=== PATIENT | female | born 1985 | race Caucasian/White ===

== ENCOUNTER 2018-11-11 09:36 | Emergency (ER) | payer OTHER ==
[~2018-11-11] VITALS: Wt 102.0 kg
[~2018-11-11 09:36] MED LIST: AZIT250T PO; GUAI5SYR2 PO; HYDR-4011 PO; IBUP-1542 PO; NAPR-985 PO
[2018-11-11 09:39] VITALS: RESP 18
[2018-11-11] MEDS ORDERED: KETOROLAC 30 MG INJ IV STA (09:54)
[2018-11-11] MEDS ORDERED: ONDANSETRON 4 MG INJ IV STA (09:54)
[2018-11-11] MEDS ORDERED: morphine 4 MG/ML VIAL IV STA (10:25)
[2018-11-11] MEDS ORDERED: SOD CHLORIDE 0.9% 1,000 ML IV ONE (10:30)
[2018-11-11] MEDS ORDERED: IBUP-1542 PO (11:16)
[2018-11-11] MEDS ORDERED: NITR-58 PO (11:17)
[2018-11-11] MEDS ORDERED: HYDR-4011 PO (11:21)
--- NOTE | 2018-11-11 11:28 | ERD ---
ER Documentation Chief Complaint Chief Complaint R FLANK PAIN WITH N/V. SUDDEN ONSET THIS AM. NO DYSURIA PER PT HPI Patient is a 33-year-old female, no past medical history, presents the ER for concerns of right upper quadrant pain along with nausea and vomiting which started this morning. Patient states her pain was a 10 out of 10. Patient reports 3-4 episodes of nonbloody, nonbilious vomiting. Patient denies any chest pain or shortness of breath. Patient does report dysuria however she denies any hematuria. Patient denies fevers or chills. Patient denies any diarrhea. Patient states she ate red [employer] qianchengwuyouer last night for dinner. ROS All systems reviewed and are negative except as per history of present illness. Medications Home Meds Active Scripts Hydrocodone/Acetaminophen ([place] 5-325 Tablet) 1 Each Tablet, 1 TAB PO Q6H PRN for PAIN, #7 TAB Prov:YAIMA SWAIN PA-C 11/11/18 Nitrofurantoin Monohyd Macrocr* (Macrobid*) 100 Mg Capsr, 100 MG PO BID for 5 Days, CAP Prov:YAIMA SWAIN PA-C 11/11/18 Ibuprofen* (Motrin*) 600 Mg Tab, 600 MG PO Q6, #30 TAB Prov:YAIMA SWAIN PA-C 11/11/18 Hydrocodone/Acetaminophen ([place] 5-325 Tablet) 1 Each Tablet, 1 TAB PO Q6H PRN for PAIN, #20 TAB Prov:CIRA SHIPMAN PA-C 03/30/16 Naproxen* (Naprosyn*) 500 Mg Tablet, 500 MG PO BID PRN for PAIN AND/OR INFLAMMATION, #30 TAB Prov:CIRA SHIPMAN PA-C 03/30/16 Guaifenesin-Dextromethorphan* (Robitussin* DM) 100MG/10MG/5ML Syrup, 10 ML PO Q6H PRN for COUGH for 5 Days, ML Prov:CODI MOSES PA-C 01/06/16 Ibuprofen* (Motrin*) 600 Mg Tab, 600 MG PO Q6, #20 TAB Prov:CODI MOSES PA-C 01/06/16 Azithromycin* (Zithromax*) 250 Mg Tablet, 250 MG PO .KASHIF DIRECTED, #6 TAB TAKE 500 MG (2 TABS) THE FIRST DAY THEN 250 MG (1 TAB) DAYS 2-5 Prov:CODI MOSES PA-C 01/06/16 Allergies Allergies: Coded Allergies: No Known Allergy (Unverified , 03/30/16) PMhx/Soc Medical and Surgical Hx: pt denies Medical Hx, pt denies Surgical Hx Hx Alcohol Use: No Hx Substance Use: No Hx Tobacco Use: No FmHx Family History: No diabetes Physical Exam Vitals Vital Signs Date Temp Pulse Resp B/P (MAP) Pulse Ox O2 O2 Flow FiO2 Time Delivery Rate 11/11/18 98.3 77 18 130/82 99 09:39 (98) Physical Exam GENERAL: Well-developed, well-nourished female. Appears uncomfortable secondary to pain. HEAD: Normocephalic, atraumatic. EYES: Pupils are equally reactive bilaterally. EOMs grossly intact. No conjunctival erythema. ENT: Moist mucous membranes. No uvula deviation. No kissing tonsils. NECK: Supple. No meningismus. Normal range of motion of the neck. LUNG: Clear to auscultation bilaterally. No rhonchi, wheezing, rales or coarse breath sounds. HEART: Regular rate and rhythm. No murmurs, rubs or gallops. ABDOMEN: Soft, nondistended. Tender to palpation in the right upper quadrant.. Positive bowel sounds in all four quadrants. No rebound tenderness, no guarding. (-) McBurney's point tenderness. No CVA tenderness. BACK: No midline tenderness. EXTREMITIES: Equal pulses bilaterally. No peripheral clubbing, cyanosis or edema. No unilateral leg swelling. NEUROLOGIC: Alert and oriented. Moving all four extremities without any difficulty. Normal speech. Steady gait. SKIN: Normal color. Warm and dry. No rashes or lesions. Result Diagram: 11/11/18 1001 11/11/18 1001 Results 24 hrs Laboratory Tests Test 11/11/18 10:00 11/11/18 10:01 Urine Color YELLOW Urine Clarity TURBID Urine pH 5.0 Urine Specific [place] 1.028 Urine Ketones NEGATIVE mg/dL Urine Nitrite NEGATIVE mg/dL Urine Bilirubin NEGATIVE mg/dL Urine Urobilinogen 1+ mg/dL Urine Leukocyte Esterase 2+ Dilia/ul Urine Microscopic RBC 7 /HPF Urine Microscopic WBC 17 /HPF Urine Squamous Epithelial Cells FEW /HPF Urine Bacteria FEW /HPF Urine Mucus MANY /HPF Urine Hemoglobin 1+ mg/dL Urine Glucose NEGATIVE mg/dL Urine Total Protein NEGATIVE mg/dl White Blood Count 12.3 10^3/ul Red Blood Count 5.15 10^6/ul Hemoglobin 12.5 g/dl Hematocrit 40.7 % Mean Corpuscular Volume 79.0 fl Mean Corpuscular Hemoglobin 24.3 pg Mean Corpuscular Hemoglobin Concent 30.7 g/dl Red Cell Distribution Width 16.5 % Platelet Count 280 10^3/UL Mean Platelet Volume 10.7 fl Immature Granulocytes % 0.300 % Neutrophils % 67.5 % Lymphocytes % 25.5 % Monocytes % 5.1 % Eosinophils % 1.0 % Basophils % 0.6 % Nucleated Red Blood Cells % 0.0 /100WBC Immature Granulocytes # 0.040 10^3/ul Neutrophils # 8.3 10^3/ul Lymphocytes # 3.1 10^3/ul Monocytes # 0.6 10^3/ul Eosinophils # 0.1 10^3/ul Basophils # 0.1 10^3/ul Nucleated Red Blood Cells # 0.0 10^3/ul Sodium Level 144 mmol/L Potassium Level 4.2 mmol/L Chloride Level 106 mmol/L Carbon Dioxide Level 26 mmol/L Anion Gap 12 Blood Urea Nitrogen 16 mg/dl Creatinine 0.63 mg/dl Est Glomerular Filtrat Rate mL/min > 60 mL/min Glucose Level 160 mg/dl Calcium Level 9.3 mg/dl Total Bilirubin 0.4 mg/dl Direct Bilirubin 0.00 mg/dl Indirect Bilirubin 0.4 mg/dl Aspartate Amino Transf (AST/SGOT) 34 IU/L Alanine Aminotransferase (ALT/SGPT) 46 IU/L Alkaline Phosphatase 100 IU/L Total Protein 8.0 g/dl Albumin 4.3 g/dl Globulin 3.70 g/dl Albumin/Globulin Ratio 1.16 Lipase 90 U/L POC Beta HCG, Qualitative NEGATIVE Current Medications Medications Dose Sig/Pj Start Time Status Last (Trade) Ordered Route PRN Stop Time Admin Dose Reason Admin Ondansetron 4 mg ONCE STAT 11/11/18 DC 11/11/18 HCl (Zofran IV 09:54 11/11/18 10:05 Inj) 09:55 Ketorolac 30 mg ONCE STAT 11/11/18 DC 11/11/18 Tromethamine IV 09:54 6/7/19 10:05 (Toradol) 09:55 Sodium 1,000 ml @ Q1H ONCE 11/11/18 11/11/18 Chloride 1,000 mls/hr IV 10:30 11/11/18 10:25 11:29 Morphine 4 mg ONCE STAT 11/11/18 DC 11/11/18 Sulfate IV 10:25 11/11/18 10:30 (morphine) 10:28 Procedures/MDM ED COURSE: The patient was stable throughout ED course. I kept the patient and/or family informed of laboratory and diagnostic imaging results throughout the ED course. DIAGNOSTIC IMAGING: Read by radiologist. DIAGNOSTIC IMAGING REPORT Patient: RAUL MEAD : 1985 Age: 33 Sex: F MR #: [id number] DOS: 11/11/18 0954 Ordering MD: YAIMA SWAIN PA-C Location: [facility] Room/Bed: PROCEDURE: US Abdomen (right upper quadrant). CLINICAL INDICATION: Abdominal pain TECHNIQUE: Multiple real-time longitudinal and transverse images of the right upper quadrant of the abdomen were acquired utilizing a curved array transducer. Images were reviewed on a high-resolution PACS workstation. COMPARISON: None FINDINGS: The liver is normal in size and demonstrates diffusely increased echogenicity without focal mass or intrahepatic biliary dilatation. Multiple stones are seen layering dependently in the gallbladder. There is no pericholecystic fluid or gallbladder wall thickening. No intra or extrahepatic biliary dilatation is see n. The common bile duct measures 4.4 mm in maximal dimension. The pancreas is not well seen due to overlying bowel gas. No free fluid is identified. The right kidney measures 11.8 cm in length. There is normal echogenicity within the right kidney. There is no perinephric fluid collection. No hydronephrosis, mass, or calculus is seen. IMPRESSION: 1. Cholelithiasis without evidence of acute cholecystitis. 2. Diffusely increased hepatic echogenicity compatible with steatosis. RPTAT: JJ .Lopez Verduzco MD, MD Date Time Electronically viewed and signed by .Lopez Verduzco MD, MD on 11/11/2018 10:52 .A/ CC: YAIMA SWAIN PA-C [id number] PROCEDURES: None. MEDICATIONS GIVEN: IV fluids, Zofran, Toradol, morphine Patient tolerated medication well with no adverse reactions. Patient reported improvement in pain. MEDICAL DECISION MAKING: This is a 33-year-old female who presents to the ER for concerns of right upper quadrant pain along with nausea and vomiting which started this morning.. Vital signs were reviewed. Patient is afebrile. Patient was not hypoxic. IV line was established. Blood work was obtained. CBC showed WBC count of 12.3 likely due to recent vomiting. No evidence of severe anemia. CMP showed no evidence of electrolyte abnormalities, severe acidosis, alkalosis, renal failure, or liver disease. Lipase showed no evidence of acute pancreatitis. UA showed 2+ leukocyte esterase and positive WBCs. Given that patient also did report dysuria, patient will be treated for concerns of UTI. Urine test was negative. Right upper quadrant ultrasound showed concerns of cholelithiasis without evidence of acute cholecystitis. See formal report above. Upon reexamination, patient did report improvement in pain. Patient was advised to need to follow-up with a general surgeon on outpatient basis for elective cholecystectomy. Differential diagnosis included but was not limited to acute coronary syndrome, AAA, mesenteric ischemia, lower lobe pneumonia, DKA, bowel perforation, cholecystitis, choledocholithiasis, ascending cholangitis, hepatic abscess, pancreatitis, PUD, gastritis, GERD, splenic rupture, diverticulitis, UTI, pyelonephritis, nephrolithiasis, appendicitis, constipation, , ectopic , PID, ovarian torsion or tubo-ovarian abscess. Patient was nontoxic, [id number] prior to discharge. PRESCRIPTIONS: [place], Macrobid, ibuprofen The patient has been prescribed [place] during this encounter. The patient has been warned about the use of narcotics. The patient should not drive or operate heavy machinery while taking this medication. The patient was also warned about the addictive properties of narcotic medications. Narcan prescription was NOT provided given the following criteria: Less than 10 tablets of [place] 5 mg were prescribed and as patient did not have history of concurrent benzo use. DISCHARGE: At this time, patient is stable for discharge and outpatient management. I have instructed the patient to follow-up with his/her primary care physician in 1-2 days. I have instructed the patient to promptly return to the ER at any time for any new or worsening symptoms including increased pain, nausea, vomiting, diarrhea, fever, weakness or LOC. The patient and/or family expressed understanding of and agreement with this plan. All questions were answered. Home care instructions were provided. Disclaimer: Inadvertent spelling and grammatical errors are likely due to EHR/dictation software use and do not reflect on the overall quality of patient care. Also, please note that the electronic time recorded on this note does not necessarily reflect the actual time of the patient encounter. Departure Diagnosis: Primary Impression: Cholelithiasis Cholelithiasis location: other site Biliary obstruction: without biliary obstruction Qualified Codes: K80.80 - Other cholelithiasis without obstruction Additional Impression: UTI (urinary tract infection) Urinary tract infection type: site unspecified Hematuria presence: without hematuria Qualified Codes: N39.0 - Urinary tract infection, site not specified Condition: Fair Patient Instructions: Understanding Urinary Tract Infections (UTIs), Gallstones Additional Instructions: Follow-up with the general surgeon for elective cholecystectomy. Call your primary care doctor TOMORROW for an appointment during the next 1-2 days.See the doctor sooner or return here if your condition worsens before your appointment time. YAIMA SWAIN PA-C Nov 11, 2018 11:28
[2018-11-11 11:33] VITALS: BP 112/57; PULSE 60
[2018-11-11] MEDS ORDERED: ONDA4TAB14 PO (11:36)
== END 2018-11-11 11:57 | disposition home or self-care (01) ==
LOC: FTE 09:36
DX: K80.80 Other cholelithiasis without obstruction (principal); N39.0 Urinary tract infection, site not specified
CPT/HCPCS: 36415; 76705; 80053; 81001; 81025; 83690; 85025; 96374; 96375; J1885; J2270; J2405; J7030; Z7502